=== PATIENT | male | born 1995 | race Caucasian/White ===

== ENCOUNTER 2019-05-12 08:03 | Emergency (ER) | payer BC ==
--- NOTE | 2019-05-12 08:31 | ED ---
HPI Cardiac - HPI Summary HPI Summary: This patient is a 23-year-old otherwise healthy male presenting to the ED with right-sided rib pain. He states he awoke yesterday with pain to the right area with difficulty breathing. He states he is only short of breath when taking a deep breath. He states it is only painful when taking a deep breath. Denies any cardiac history or asthma. He states his abdomen before. He is otherwise healthy and takes no medications. He is right ibuprofen [id number] with minimal relief. He has not used heat or ice. He states symptoms are somewhat worse with movement, but worse with deep breaths. He states yesterday symptoms were moderate, 5/10 associated with deep breaths, today he awoke with pain regardless of breathing deep. - History of Current Complaint Chief Complaint: EDChestWallPain Stated Complaint: RT SIDED ABD PAIN PER PT Time Seen by Provider: 05/12/19 08:14 Hx Obtained From: Patient Onset/Duration: Started Hours Ago Timing: Constant Initial Severity: Moderate Current Severity: Moderate Pain Intensity: 8 Pain Scale Used: 0-10 Numeric Chest Pain Location: Discrete at: - right sided chest wall pain Chest Pain Radiates: No Aggravating Factor(s): Nothing Alleviating Factor(s): Nothing Associated Signs and Symptoms: Positive: Negative - Risk Factors Pulmonary Embolism Risk Factors: Negative Cardiac Risk Factors: Negative Atrial Fibrillation Risk Factors: Negative TAD Risk Factors: Negative - Allergy/Home Medications Allergies/Adverse Reactions: Allergies Allergy/AdvReac Type Severity Reaction Status Date / Time No Known Allergies Allergy Verified 05/12/19 08:08 Home Medications: Home Medications NK [No Home Medications Reported] 05/12/19 [History Confirmed 05/12/19] PMH/Surg Hx/FS Hx/Imm Hx Previously Healthy: Yes - Immunization History Hx Pertussis Vaccination: No Immunizations Up to Date: Yes Infectious Disease History: No Infectious Disease History: Denies: Traveled Outside the [place] in Last 30 Days - Social History Occupation: Unemployed, Student Lives: With Family Alcohol Use: None Hx Substance Use: No Substance Use Type: Reports: None Hx Tobacco Use: No Review of Systems Constitutional: Negative Negative: Fever, Chills, Fatigue, Skin Diaphoresis Positive: Chest Pain - right sided chest wall pain worse with deep breaths. Negative: Palpitations Negative: Shortness Of Breath, Cough Genitourinary: Negative Positive: no symptoms reported, see HPI Positive: Arthralgia - right sided CP pain Neurological: Negative All Other Systems Reviewed And Are Negative: Yes Physical Exam Triage Information Reviewed: Yes Vital Signs On Initial Exam: Initial Vitals Temp Pulse Resp BP Pulse Ox 97.8 F 76 14 120/83 100 05/12/19 08:06 05/12/19 08:06 05/12/19 08:06 05/12/19 08:06 05/12/19 08:06 Vital Signs Reviewed: Yes Appearance: Positive: Well-Appearing, Well-Nourished Skin: Positive: Warm, Skin Color Reflects Adequate Perfusion Head/Face: Positive: Normal Head/Face Inspection Eyes: Positive: EOMI, LUCY, Conjunctiva Clear Neck: Positive: Supple, No Lymphadenopathy Respiratory/Lung Sounds: Positive: Clear to Auscultation, Breath Sounds Present Cardiovascular: Positive: RRR, Pulses are Symmetrical in both Upper and Lower Extremities Musculoskeletal: Positive: Strength/ROM Intact Neurological: Positive: Alert, Oriented to Person Place, Time, Speech Normal Psychiatric: Positive: Affect/Mood Appropriate AVPU Assessment: Alert Diagnostics - Vital Signs Vital Signs Temp Pulse Resp BP Pulse Ox 05/12/19 08:06 97.8 F 76 14 120/83 100 - Laboratory Result Diagrams: 05/12/19 08:30 05/12/19 08:30 Lab Statement: Any lab studies that have been ordered have been reviewed, and results considered in the medical decision making process. Disposition - Course Course Of Treatment: During the course of treatment, patient's evaluated for right-sided rib pain. He feels the pain as up under the right rib cage and worse with taking deep breaths. Better with rest, however still present. Symptoms only somewhat worse with movement. Denies any radiation of the pain. Denies any pain to the chest otherwise, radiation to the left arm or into the jaw. Patient has not been sick, denies recent travel, denies calf pain, and no smoking history. - Differential Dx - Cardiopulmonary Differential Diagnoses - Cardiopulmonary: Chest Wall Pain, Other - Diagnoses Provider Diagnoses: Chest wall pain Discharge ED - Sign-Out/Discharge Documenting (check all that apply): Patient Departure Patient Received Moderate/Deep Sedation with Procedure: No - Discharge Plan Condition: Stable Disposition: HOME Patient Education Materials: Chest Wall Pain (ED) Referrals: [facility] Hector EDUARDO [Primary Care Provider] - Additional Instructions: Moist heat to the area Gentle stretches after heat may help Ibuprofen 600mg three times daily x 3 days - Billing Disposition and Condition Condition: STABLE Disposition: Home
[2019-05-12 08:42] LABS: ABS Eosinophils 0.1 10^3/ul (0-0.6); ABS Lymphocytes 1.8 10^3/ul (1.0-4.8); ABS Neutrophils 6.1 10^3/ul (1.5-7.7); Eosinophil % 1.2 %; Hematocrit 45 % (42-52); Hemoglobin 15.9 g/dL (14.0-18.0); Lymphocyte % 19.7 %; Mean Corpuscular HGB Conc 36 g/dL (31-36); Mean Corpuscular Hemoglobin 33 pg (27-31); Mean Corpuscular Volume 93 fL (80-94); Mean Platelet Volume 7.9 fL (7.4-10.4); Nucleated Red Blood Cells % 0.1; Platelet Count 247 10^3/uL (150-450); Red Blood Count 4.81 10^6 /uL (4.18-5.48); Red Cell Distribution Width 13 % (10-15); White Blood Count 8.9 10^3/uL (3.5-10.8)
[2019-05-12 08:54] LABS: Albumin/Globulin Ratio 1.9 (1-3); BUN/Creatinine Ratio 19.1 (8-20); EGFR African American 122.6 (>60); EGFR Non-African American 101.3 (>60); Globulin 2.7 g/dL (2-4); Potassium 4.3 mmol/L (3.5-5.0); Total Bilirubin 0.8 mg/dL (0.2-1.0); Total Protein 7.7 g/dL (6.4-8.9)
[2019-05-12 11:19] VITALS: BP 114/71
== END 2019-05-12 10:03 | disposition home or self-care (01) ==
LOC: ED 08:03
DX: R07.89 Other chest pain (principal); R06.02 Shortness of breath
CPT/HCPCS: 36415; 71046; 80053; 84484; 85025; 99282

== ENCOUNTER 2019-10-26 15:28 | Emergency (ER) | payer BC ==
--- NOTE | 2019-10-26 16:41 | ED ---
Back Pain - HPI Summary HPI Summary: Patient complains of low right side back pain 3 weeks. Pain is intermittent, sometimes associated with tingling down right upper leg. Denies trauma, no injury, urinary retention, bowel incontinence, IV drug use, fever, rash, abdominal pain. Pain improves with ibuprofen, and lying down. Patient is taking ibuprofen only intermittently. Ibuprofen last taken yesterday. Medical history is none. - History of Current Complaint Chief Complaint: EDBackInjuryPain Stated Complaint: LOWER BACK PAIN PER PT Time Seen by Provider: 10/26/19 16:24 Hx Obtained From: Patient Onset/Duration: Gradual Onset, Lasting Weeks Onset/Duration: Started Weeks Ago Timing: Intermittent, Lasting Hours Back Pain Location: Is Discrete @ Severity Initially: Moderate Severity Currently: Mild Pain Intensity: 2 Pain Scale Used: 0-10 Numeric Character: Aching Aggravating Symptom(s): Movement, Walking Alleviating Symptom(s): Rest, Position Associated Signs And Symptoms: Positive: Negative - Allergies/Home Medications Allergies/Adverse Reactions: Allergies Allergy/AdvReac Type Severity Reaction Status Date / Time No Known Allergies Allergy Verified 10/26/19 15:39 Home Medications: Home Medications Diazepam TAB(*) [Valium TAB(*)] 5 mg PO BID 3 Days #6 tab MDD 3 tabs 10/26/19 [ Rx] PMH/Surg Hx/FS Hx/Imm Hx Endocrine/Hematology History: Denies: Hx Anticoagulant Therapy Cardiovascular History: Denies: Hx Pacemaker/ICD History: Denies: Hx Dialysis Sensory History: Denies: Hx Eye Prosthesis Opthamlomology History: Denies: Hx Legally Blind EENT History: Denies: Hx Hearing Aid - Immunization History Immunizations Up to Date: Yes Infectious Disease History: No Infectious Disease History: Denies: Traveled Outside the [place] in Last 30 Days - Family History Known Family History: Positive: Non-Contributory - Social History Alcohol Use: None Hx Substance Use: No Substance Use Type: Reports: None Hx Tobacco Use: No Smoking Status (MU): Never Smoked Tobacco Review of Systems Constitutional: Negative Eyes: Negative ENT: Negative Cardiovascular: Negative Respiratory: Negative Gastrointestinal: Negative Genitourinary: Negative Musculoskeletal: Other Skin: Negative Neurological/Mental Status: Negative Psychological: Normal All Other Systems Reviewed And Are Negative: Yes Physical Exam - Summary Physical Exam Summary: Tenderness along the right side paraspinal muscles of lumbar spine. Otherwise normal exam of the back. PMS intact distally on bilateral lower extremities. Triage Information Reviewed: Yes Vital Signs On Initial Exam: Initial Vitals Temp Pulse Resp BP Pulse Ox 99.5 F 78 18 135/80 100 10/26/19 15:35 10/26/19 15:35 10/26/19 15:35 10/26/19 15:35 10/26/19 15:35 Vital Signs Reviewed: Yes Appearance: Positive: Well-Appearing Skin: Positive: Warm Head/Face: Positive: Normal Head/Face Inspection Eyes: Positive: Normal Neck: Positive: Supple Respiratory/Lung Sounds: Positive: Clear to Auscultation Cardiovascular: Positive: Normal Abdomen Description: Positive: Nontender Musculoskeletal: Positive: Normal Neurological: Positive: Normal Psychiatric: Positive: Normal AVPU Assessment: Alert - [place] Coma Scale Best Eye Response: 4 - Spontaneous Best Motor Response: 6 - Obeys Commands Best Verbal Response: 5 - Oriented Coma Scale Total: 15 Procedures - Sedation Patient Received Moderate/Deep Sedation with Procedure: No Diagnostics - Vital Signs Vital Signs Temp Pulse Resp BP Pulse Ox 10/26/19 15:35 99.5 F 78 18 135/80 100 - Laboratory Lab Statement: Any lab studies that have been ordered have been reviewed, and results considered in the medical decision making process. Back Pain Course/Dx - Course Course Of Treatment: Patient complains of low right side back pain 3 weeks. Pain is intermittent, sometimes associated with tingling down right upper leg. Denies trauma, no injury, urinary retention, bowel incontinence, IV drug use, fever, rash, abdominal pain. Pain improves with ibuprofen, and lying down. Patient is taking ibuprofen only intermittently. Ibuprofen last taken yesterday. Patient ambulatory. Medical history is none. Vital signs within normal limits. - Diagnoses Provider Diagnoses: Back spasm Discharge ED - Sign-Out/Discharge Documenting (check all that apply): Patient Departure - Discharge Plan Condition: Stable Disposition: HOME Prescriptions: Diazepam TAB(*) [Valium TAB(*)] 5 mg PO BID 3 Days #6 tab MDD 3 tabs Patient Education Materials: Muscle Spasm (ED) Referrals: [facility] - Hector EDUARDO [Primary Care Provider] - Additional Instructions: Take ibuprofen 600 mg every 6 hours for 4 days. Take Flexeril as directed during the day. At night switch to Valium and take as directed. Rest back muscles for the next few days, and then gradually increase activity back to normal. Follow-up with primary care. Return to the ED for any new or worsening symptoms. - Billing Disposition and Condition Condition: STABLE Disposition: Home - Attestation Statements Provider Attestation: I was available for consultation for this patient. I did not evaluate the patient, or participate in any medical decision making or disposition decisions unless I am specifically named in the chart as having consulted on the patient. If I have consulted on the patient, please see my own ED note on the patient encounter. Tamiko Joyner MD
[2019-10-26] MEDS ORDERED: Ketorolac INJ* 30 MG/ML 1 ML VIAL IM ONE (16:55)
[2019-10-26] MEDS ORDERED: Cyclobenzaprine TAB* 10 MG PO ONE (16:55)
[2019-10-26 17:36] VITALS: BP 130/80
== END 2019-10-26 17:39 | disposition home or self-care (01) ==
LOC: ED 15:28
DX: M62.830 Muscle spasm of back (principal)
CPT/HCPCS: 96372; 99282; A9270-GY; J1885